=== PATIENT | female | born 1990 | race Caucasian/White ===

== ENCOUNTER 2021-03-10 08:07 | Emergency (ER) | payer OTHER, SELFPAY ==
[2021-03-10 08:08] VITALS: BP 162/84; PULSE 98; RESP 18; TEMP 36.6; O2SAT 98; BMI 32.5
[2021-03-10 08:19] VITALS: BP 162/84; PULSE 98; RESP 18; TEMP 36.6; O2SAT 98
--- NOTE | 2021-03-10 08:24 | US_ITS ---
STUDY: FIRST TRIMESTER OBSTETRICAL ULTRASOUND REASON FOR EXAM: Female, 30 years old 10 weeks preg, heavy bleeding LMP: 12/26/2020. TECHNIQUE: Transabdominal and Transvaginal TECHNICAL QUALITY: Adequate. PRIOR ULTRASOUND: None. FINDINGS: There is no demonstrated intrauterine gestational sac. There is no demonstrated yolk sac. The placenta is non-visualized. There is no demonstrated embryo ( pole). The estimated gestation age (EGA) by LMP is 10 weeks, 4 days. The estimated date of delivery (ALEJANDRO) by LMP is 10/02/2021. The uterus measures 12.6 cm by 4.1 cm x 4.5 cm. There is no demonstrated uterine fibroid. The cervix is open. The endometrium measures 1.5 cm. There is a 9 mm x 9 mm x 6 mm fluid collection in the lower uterine segment The right ovary measures 2.6 cm x 3.2 cm by 1.6 cm. There is no right ovarian cyst. There is no visualized right adnexal mass or complex lesion. The left ovary measures 2.7 cm x 2 cm x 1.4 cm. There is no left ovarian cyst. There is no visualized left adnexal mass or complex lesion. There is minimal fluid in the cul de sac. US/Transvaginal w/Preg US IMPRESSION: No intrauterine gestation is seen. Thickened endometrium. Fluid collection in the lower uterine segment. Findings are suggestive of a spontaneous . Electronically Signed: Brigido Moss MD at 10:04 EDT , Service support ,
--- NOTE | 2021-03-10 08:26 | EDS_ITS ---
HPI HPI - Female History of Present Illness Chief Complaint: Vag Bld, Preg Informant: patient and spouse/S.O. Narrative Narrative: Patient is a 30-year-old previously healthy female who is G8, P6 at approximately 10 weeks who presents to the emergency department for heavy vaginal bleeding. She states this started yesterday. She is going through approximately 1 pad per hour currently. She states that she had a syncopal episode this morning. She has had 1 previous miscarriage in the past. She does follow with a bag machine tender. She does get occasional right lower quadrant abdominal cramping with this. She denies any back pain. No urinary symptoms. No fevers or chills. Denies any change in bowel movements. No nausea/vomiting. She is not on any blood thinning medications. She says she has gotten RhoGam before in the past. PFSH PFSH Home Medications NK 03/10/21 [History Last Taken Unknown] Allergy/AdvReac Type Severity Reaction Status Date / Time No Known Allergies Allergy Verified 03/10/21 08:11 Social History Smoking Status: Never smoker ROS ROS ED Constitutional Constitutional ED: Denies chills or fever(s) Eyes Eyes: Denies change in vision ENT ENT ED: Denies epistaxis or rhinorrhea Cardiovascular Cardiovascular: Denies chest pain or palpitations Respiratory/Chest Respiratory/Chest: Denies cough, dyspnea or dyspnea on exertion Gastrointestinal Gastrointestinal: Denies abdominal pain, diarrhea, nausea or vomiting Genitourinary Genitourinary ED: Denies dysuria, hematuria or urinary frequency Musculoskeletal Musculoskeletal: Denies back pain or neck pain Integumentary Denies rash Neurologic Neurologic: Denies headache(s) or weakness EXAM Physical Exam Const Vital Signs: 03/10/21 08:08 03/10/21 08:19 03/10/21 09:34 Temperature 98 F 98 F 98.3 F Temperature Source Temporal Temporal Temporal Pulse Rate 98 98 83 Respiratory Rate 18 18 16 Blood Pressure 162/84 H 162/84 H 163/75 H Blood Pressure Mean 110 110 104 Pulse Ox 98 98 98 Oxygen Delivery Method Room Air Room Air Room Air 03/10/21 10:00 03/10/21 12:37 Temperature 98.3 F Temperature Source Temporal Pulse Rate 79 77 Respiratory Rate 16 16 Blood Pressure 137/73 H 144/86 H Blood Pressure Mean 94 Pulse Ox 98 99 Oxygen Delivery Method Room Air Positive well nourished and well developed General Appearance ED: well developed and NAD HEENT Reports normocephalic and head/scalp atraumatic Eyes PERRL and EOMs intact bilaterally Neck supple Chest Wall inspection of chest normal Resp normal respiratory effort and clear to auscultation bilaterally Auscultation: Negative for rales, rhonchi or wheezes Cardio regular rate, regular rhythm and no murmurs GI normal to inspection, nondistended, normoactive bowel sounds and non-tender Palpation: soft; Negative for guarding or rebound tenderness present Back/Spine no CVA tenderness Extremity normal to inspection General Extremety ED: Negative for edema or tenderness General Extremity: Negative for edema Neuro CN's II-XII intact bilaterally and no sensory deficits noted Sensorium / Orientation: alert Motor Exam: strength 5/5 throughout Psych mental status grossly normal Skin no rashes or lesions noted MDM MDM MDM Narrative Medical decision making narrative: Patient presents to the emergency department for heavy vaginal bleeding at approximately 10 weeks . She states she did have a syncopal episode this morning. Upon arrival to the emergency department she is actually hypertensive. The rest of her vital signs are within normal limits. Patient's lab work did not reveal the patient to be anemic. She does have an elevated hCG. Her ultrasound did not show any evidence of intrauterine . It was consistent with . Patient was made aware of all lab work and ultrasound findings. She is Rh- and did get RhoGam here in the emergency department. She has been up walking around emergency department without any repeat symptoms of lightheadedness or near syncope. This time I feel she is stable for discharge. I did give her MANAGER PROCUREMENT referral for close follow-up. Return precautions are reviewed including any symptoms of lightheaded, chest pain, worsening bleeding, abdominal pain or fevers. She understands and is agreeable this plan. All questions were answered. Lab Data Labs: Laboratory Results - last 24 hr 03/10/21 03/10/21 03/10/21 08:25 08:25 08:25 WBC 8.3 RBC 4.56 Hgb 12.9 Hct 38.6 MCV 84.6 MCH 28.3 MCHC 33.4 RDW Std Deviation 40.2 RDW Coeff of Regan 13.0 Plt Count 220 MPV 10.4 Immature Gran % (Auto) 0.800 Neut % (Auto) 71.9 H Lymph % (Auto) 17.1 L [place] % (Auto) 7.3 Eos % (Auto) 2.2 Baso % (Auto) 0.7 Absolute Neuts (auto) 6.0 Absolute Lymphs (auto) 1.42 Nucleated RBC % 0 Sodium 137 Potassium 3.3 L Chloride 106 Carbon Dioxide 26.0 Anion Gap 5 BUN 8 Creatinine 0.72 Estim Creat Clear Calc 97.76 Est GFR (MDRD) Af Amer 121 Est GFR (MDRD) Non-Af 100 BUN/Creatinine Ratio 11.2 Glucose 119 H Calcium 8.5 Total Bilirubin 0.50 AST 11 L ALT 30 Alkaline Phosphatase 91 Total Protein 7.2 Albumin 3.7 Globulin 3.5 Albumin/Globulin Ratio 1.1 HCG, Quant 5764 H Urine Color Urine Clarity Urine pH Ur Specific [place] Urine Protein Urine Glucose (UA) Urine Ketones Urine Occult Blood Urine Nitrite Urine Bilirubin Urine Urobilinogen Ur Leukocyte Esterase Urine RBC Urine WBC Ur Squamous Epith Cells Urine Bacteria Urine Mucus Blood Type Screen Baby's Blood Type Baby's RUSSELL 03/10/21 03/10/21 03/10/21 08:25 08:25 09:30 WBC RBC Hgb Hct MCV MCH MCHC RDW Std Deviation RDW Coeff of Regan Plt Count MPV Immature Gran % (Auto) Neut % (Auto) Lymph % (Auto) [place] % (Auto) Eos % (Auto) Baso % (Auto) Absolute Neuts (auto) Absolute Lymphs (auto) Nucleated RBC % Sodium Potassium Chloride Carbon Dioxide Anion Gap BUN Creatinine Estim Creat Clear Calc Est GFR (MDRD) Af Amer Est GFR (MDRD) Non-Af BUN/Creatinine Ratio Glucose Calcium Total Bilirubin AST ALT Alkaline Phosphatase Total Protein Albumin Globulin Albumin/Globulin Ratio HCG, Quant Urine Color Yellow Urine Clarity Sl. Cloudy Urine pH 8.0 Ur Specific [place] 1.010 Urine Protein 30 H Urine Glucose (UA) Normal Urine Ketones Negative Urine Occult Blood 250 H Urine Nitrite Negative Urine Bilirubin Negative Urine Urobilinogen Normal Ur Leukocyte Esterase 25 H Urine RBC 5-10 SEEN Urine WBC 0 SEEN Ur Squamous Epith Cells 0 SEEN Urine Bacteria 0 SEEN Urine Mucus 0 SEEN Blood Type A NEGATIVE Screen Cancelled Baby's Blood Type Cancelled Baby's RUSSELL Cancelled Radiography Diagnostic Testing: Radiology Impression Obstetrics Ultrasound 03/10/21 08:24 IMPRESSION: No intrauterine gestation is seen. Thickened endometrium. Fluid collection in the lower uterine segment. Findings are suggestive of a spontaneous . Electronically Signed: Brigido Moss MD at 10:04 EDT , Service support , Discharge Plan Triage Chief Complaint: Vag Bld, Preg ED Provider: Claudy Fox Dx/Rx/DC Orders Clinical Impression: Complete miscarriage Instructions: ED MISCARRIAGE Completed Prescriptions: No Action NK RF: 0 Primary Care Provider: Care Physician,No Primary Referrals: Lyla Baltazar MD [STAFF PHYSICIAN] - 1-2 Days if not improving Care Physician,No Primary [Primary Care Provider] - Disposition Disposition: Home, Self Care Discharge Date/Time: 03/10/21 12:38
[2021-03-10 08:40] LABS: Absolute Lymphocyte Count 1.42 X10^3/uL (0.83-4.51); Basophil# 0.06 X10^3/uL; Basophil% 0.7 % (0-1); Eosinophil# 0.18 X10^3/uL; Eosinophils% 2.2 % (0-5); Hematocrit 38.6 % (37-47); Hemoglobin 12.9 g/dL (12.0-15.0); Lymphocyte # 1.42 X10^3/ul (0.83-4.51); Lymphocyte % 17.1 % (19-41); Mean Corp Hgb Conc 33.4 g/dL (32-36); Mean Corpuscular Hgb 28.3 pg (27.0-32.0); Mean Corpuscular Volume 84.6 fL (81-99); Mean Platelet Vol. 10.4 fl (6.2-12.0); Monocyte# 0.61 X10^3/uL; Monocyte% 7.3 % (0-10); NRBC Flagged by Analyzer 0 % (0-5); Neutrophil # 5.97 X10^3/uL (2.7-7.7); Neutrophil % 71.9 % (47-70); Platelet Count 220 K/mm3 (150-450); RBC Distribution Width SD 40.2 fl (35.1-43.9); Red Blood Count 4.56 M/mm3 (4.2-5.4); White Blood Count 8.3 K/mm3 (4.4-11.0)
[2021-03-10 09:09] LABS: ALB/GLOB Ratio 1.1 RATIO (0.9-2.4); AST(SGOT) 11 U/L (15-37); Alanine Aminotransfer ALT/SGPT 30 U/L (13-56); Albumin, Serum 3.7 g/dL (3.2-5.0); Alkaline Phosphatase 91 U/L (45-117); Anion Gap 5 (5-15); BUN 8 mg/dL (7-18); BUN/Creat Ratio 11.2 RATIO (10-20); Calcium,Total 8.5 mg/dL (8.5-10.1); Chloride 106 mmol/L (98-107); Creatinine, Serum 0.72 mg/dL (0.55-1.02); EST Glomerular Filtration Rate 100 mL/min (>60); Est Glom Filt Rate - Afr Amer 121 mL/min (>60); Estimated Creatinine Clearance 97.76 ml/min; Globulin 3.5 g/dL (2.2-4.2); Glucose 119 mg/dL (74-106); Potassium 3.3 mmol/L (3.5-5.1); Protein, Total 7.2 g/dL (6.4-8.2); Sodium Level 137 mmol/L (136-145)
[2021-03-10 09:34] VITALS: BP 163/75; PULSE 83; RESP 16; TEMP 36.8; O2SAT 98
[2021-03-10 09:45] LABS: hCG Titer Quant., Serum 5764 mIU/mL (1-3)
[2021-03-10 09:46] LABS: Bacteria 0 SEEN /hpf (None Seen); Mucous, Urine 0 SEEN /hpf (<or=2+); Squamous Epithelial Cells - UA 0 SEEN /hpf (5-10); White Blood Cells 0 SEEN /hpf (0-5)
[2021-03-10 09:48] LABS: Color, Urine Yellow (Yellow); Glucose, Dipstick Normal (Normal); Ketone-Dipstick Negative (Negative); Leukocyte Esterase-Dipstick 25 /ul (Negative); Nitrite-Dipstick Negative (Negative); Occult Blood-Urine 250 /ul (Negative); Protein-Dipstick 30 mg/dl (Negative); Urine Bilirubin Dipstick Negative (Negative); Urine Clarity Sl. Cloudy (Clear); Urine Urobilinogen Normal (Normal)
[2021-03-10 10:00] VITALS: BP 137/73; PULSE 79; RESP 16; TEMP 36.8; O2SAT 98
[2021-03-10 10:00] LABS: Red Blood Cells-Urine 5-10 SEEN /hpf (0-5)
[2021-03-10 12:37] VITALS: BP 144/86; PULSE 77; RESP 16; O2SAT 99
== END 2021-03-10 12:38 | disposition home or self-care (01) ==
PROVIDERS: Emergency Provider Emergency Medicine
DX: O03.9 Complete or unspecified spontaneous abortion without complication (principal)
CPT/HCPCS: 76817; 80053; 81001; 84702; 85025; 86900; 86901; 90384; 96372; 99283; A4216; J2790